=== PATIENT | female | born 1950 | race Two or more races ===

== ENCOUNTER 2021-05-05 10:02 | Outpatient (CLI) | payer OTHER | END 2021-05-05 10:10 | disposition home or self-care (01) | LOC: RX STUDY 10:02 | PROVIDERS: ATTEND Internal Medicine Gastroenterology | DX: K57.32 Diverticulitis of large intestine without perforation or abscess without bleeding (principal); K59.09 Other constipation; K56.600 Partial intestinal obstruction, unspecified as to cause ==